=== PATIENT | male | born 1955 | race African-American/Black ===

== ENCOUNTER 2018-02-18 04:05 | Emergency (ER) | payer MEDICAID ==
[~2018-02-18] VITALS: Ht 180.3 cm; Wt 88.0 kg
[~2018-02-18 04:05] MED LIST: AMLO5TAB4 PO; ENAL20TA PO; MOTRIN PO; PROT20 PO
[2018-02-18 10:05] LABS: CHLORIDE 108 mEq/L (98-107)
[2018-02-18] MEDS ORDERED: KETOROLAC 60MG/2ML VIAL IM ONE (11:00)
[2018-02-18 11:44] VITALS: BP 105/58
== END 2018-02-18 12:02 | disposition home or self-care (01) ==
LOC: ER 08:43
DX: R60.0 Localized edema (principal); R53.1 Weakness; I10 Essential (primary) hypertension; F10.20 Alcohol dependence, uncomplicated; F12.10 Cannabis abuse, uncomplicated; Z88.8 Allergy status to other drugs, medicaments and biological substances; Z88.6 Allergy status to analgesic agent
CPT/HCPCS: 36415; 71045; 80053; 83735; 84100; 96372; 99285; J1885; Z7610

== ENCOUNTER 2019-08-17 22:42 | Emergency (ER) | payer OTHER, MEDICAID ==
[~2019-08-17] VITALS: Ht 175.3 cm; Wt 91.0 kg
[2019-08-18 02:43] LABS: CLARITY URINE CLEAR (CLEAR); COLOR URINE YELLOW (YELLOW); KETONES URINE NEGATIVE (NEGATIVE); LEUKOCYTE ESTERASE URINE NEGATIVE (NEGATIVE); NITRITE URINE NEGATIVE (NEGATIVE); OCCULT BLOOD URINE NEGATIVE (NEGATIVE); PROTEIN URINE TRACE (NEGATIVE); SPECIFIC GRAVITY URINE 1.012 (1.005-1.030)
[2019-08-18 02:59] LABS: HEMATOCRIT. 44.5 % (42.0-52.0); HEMOGLOBIN. 14.8 g/dL (14.0-18.0); MEAN CORPUSCULAR HEMOGLOBIN 30.1 pg (28.0-32.0); MEAN CORPUSCULAR VOLUME 90.3 fL (80.0-94.0); MEAN PLATELET VOLUME 7.8 fl (7.4-10.4); PLATELET 176 x1000/uL (130-400); RED BLOOD CELL COUNT 4.93 mill/uL (4.7-6.1); RED CELL DISTRIBUTION WIDTH 14.7 % (11.6-14.6)
[2019-08-18 03:06] LABS: CHLORIDE 102 mEq/L (98-107)
[2019-08-18] MEDS ORDERED: KETOROLAC 30MG/ML VIAL IV NR (04:00)
[2019-08-18] MEDS ORDERED: TRAMADOL 50MG TABLET PO NR (04:00)
[2019-08-18 04:19] LABS: PLATELET ESTIMATE NORMAL
[2019-08-18] MEDS ORDERED: ONDANSETRON 4MG ODT PO ONE (08:00)
[2019-08-18] MEDS ORDERED: AMLODIPINE 5MG TABLET PO ONE (09:15)
[2019-08-18] MEDS ORDERED: ENALAPRIL 5MG TABLET PO SCH (09:15)
[2019-08-18 09:46] VITALS: BP 183/121
== END 2019-08-18 10:00 | disposition short-term general hospital (02) ==
LOC: ER 22:42 → CANBEDREQ 08-18 07:21 → ER 08-18 10:00
DX: M19.90 Unspecified osteoarthritis, unspecified site (principal); R26.2 Difficulty in walking, not elsewhere classified; I10 Essential (primary) hypertension; Z86.19 Personal history of other infectious and parasitic diseases; F12.10 Cannabis abuse, uncomplicated; F17.210 Nicotine dependence, cigarettes, uncomplicated; Z88.5 Allergy status to narcotic agent; Z88.6 Allergy status to analgesic agent
CPT/HCPCS: 36415; 73560; 80053; 81003; 85025; 96374; 99285; J1885; Q0162

== ENCOUNTER 2019-12-08 07:20 | Emergency (ER) | payer OTHER, MEDICAID ==
[~2019-12-08] VITALS: Ht 172.7 cm; Wt 94.0 kg
[2019-12-08] MEDS ORDERED: IBUPROFEN 600MG TABLET PO ONE (09:15)
[2019-12-08 12:56] VITALS: BP 136/92
== END 2019-12-08 13:00 | disposition home or self-care (01) ==
LOC: ER 07:41
DX: S90.01XA Contusion of right ankle, initial encounter (principal); S90.31XA Contusion of right foot, initial encounter; I10 Essential (primary) hypertension; M19.90 Unspecified osteoarthritis, unspecified site; F12.10 Cannabis abuse, uncomplicated; Z88.6 Allergy status to analgesic agent; Z88.5 Allergy status to narcotic agent; Z86.19 Personal history of other infectious and parasitic diseases; W01.0XXA Fall on same level from slipping, tripping and stumbling without subsequent striking against object, initial encounter; Y93.89 Activity, other specified; Y92.488 Other paved roadways as the place of occurrence of the external cause
CPT/HCPCS: 73610; 73630; 99283

== ENCOUNTER 2021-05-06 19:52 | Inpatient (IN) | payer MEDICARE, MEDICAID ==
[~2021-05-06] VITALS: Ht 180.3 cm; Wt 108.9 kg
[2021-05-06] MEDS: SODIUM CHLORIDE 0.9% 1,000 ML IV SCH (08:00)
[~2021-05-06 19:52] MED LIST changes: +AMLO10TA4 MT; +AMLO10TA80 MT; +ASCO-339 PO; +CHOL200077 MT; -ENAL20TA PO; +ENAL20TA18 PO; +FOLI-43 PO; +HYDR-4346 MT; +IBUP-2029 MT; +LACT10SO7 MT; +LISI20TA31 MT; +OMEP20CA14 PO; +SENN-139 PO; +THIA50TA12 PO; +TOPUD MT; +TRAZ-251 MT
[2021-05-06 20:25] VITALS: BP 143/86
[2021-05-06 21:00] VITALS: BP 143/86
[2021-05-06] MEDS ORDERED: DIPHENHYDRAMINE 50MG/ML VIAL IV PRN (23:30)
[2021-05-06] MEDS ORDERED: CLONIDINE 0.1MG TABLET PO PRN (23:30)
[2021-05-06] MEDS ORDERED: LORAZEPAM 2MG/ML CPJ IV PRN (23:30)
[2021-05-06] MEDS ORDERED: ACETAMINOPHEN 650MG/20.3ML UDC GT PRN (23:30)
[2021-05-06] MEDS ORDERED: ENOXAPARIN 40MG/0.4ML SYR SUBCUT SCH (23:30)
[2021-05-06] MEDS: HYDROCODONE/ACETAMINOPHEN 5/325MG TABLET PO PRN (23:44)
[2021-05-07] VITALS: BP 107/74
[2021-05-07] MEDS: HYDROCODONE/ACETAMINOPHEN 5/325MG TABLET PO PRN (05:44)
[2021-05-07] MEDS ORDERED: ACETAMINOPHEN 325MG TABLET PO PRN (06:45)
[2021-05-07 07:02] LABS: HEMOGLOBIN. 13.3 g/dL (14.0-18.0); MEAN CORPUSCULAR HEMOGLOBIN 28.8 pg (28.0-32.0); MEAN CORPUSCULAR VOLUME 86.9 fL (80.0-94.0); MEAN PLATELET VOLUME 8.2 fl (7.4-10.4); PLATELET 210 x1000/uL (130-400); RED BLOOD CELL COUNT 4.61 mill/uL (4.7-6.1); RED CELL DISTRIBUTION WIDTH 14.2 % (11.6-14.6)
[2021-05-07 07:26] LABS: CLARITY URINE CLEAR (CLEAR); COLOR URINE YELLOW (YELLOW); KETONES URINE NEGATIVE (NEGATIVE); LEUKOCYTE ESTERASE URINE NEGATIVE (NEGATIVE); NITRITE URINE NEGATIVE (NEGATIVE); OCCULT BLOOD URINE NEGATIVE (NEGATIVE); PROTEIN URINE NEGATIVE (NEGATIVE)
[2021-05-07 07:54] LABS: CHLORIDE 110 mEq/L (98-107)
[2021-05-07 08:00] VITALS: BP 134/90
[2021-05-07 08:21] LABS: PHOSPHORUS 3.5 mg/dL (2.5-4.9)
[2021-05-07] MEDS: ENOXAPARIN 30MG/0.3ML SYR SUBCUT SCH ×2 (09:15→21:00)
[2021-05-07] MEDS: THIAMINE HCL 100MG TABLET PO SCH (10:44)
[2021-05-07 12:00] VITALS: BP 134/90
[2021-05-07 12:42] LABS: PLATELET ESTIMATE NORMAL
[2021-05-07 16:00] VITALS: BP 155/99
[2021-05-07] MEDS: HYDROCODONE/ACETAMINOPHEN 10/325MG TABLET PO PRN ×2 (16:13→21:01)
[2021-05-07] MEDS ORDERED: METH-375 MT (18:48)
[2021-05-07] MEDS ORDERED: DULO30CA2 MT (18:48)
[2021-05-07] MEDS ORDERED: APIX5TAB MT (18:49)
[2021-05-07] MEDS: SODIUM CHLORIDE 0.9% 1,000 ML IV SCH (19:30)
[2021-05-07 20:00] VITALS: BP 144/87
[2021-05-07] MEDS: TRAZODONE HCL 50MG TABLET PO SCH (21:02)
[2021-05-07] MEDS: LIDOCAINE 5% PATCH TOP SCH (21:03)
[2021-05-07] MEDS: MORPHINE SULFATE 2 MG/ML CPJ (NOT FOR IM USE) IV PRN (23:45)
[2021-05-08] VITALS: BP 148/96
[2021-05-08 04:00] VITALS: BP 118/71
[2021-05-08] MEDS: OMEPRAZOLE 20MG CAPSULE EXTENDED RELEASE PO SCH (06:49)
[2021-05-08] MEDS: MORPHINE SULFATE 2 MG/ML CPJ (NOT FOR IM USE) IV PRN (06:51)
[2021-05-08] MEDS: THIAMINE HCL 100MG TABLET PO SCH (09:01)
[2021-05-08] MEDS: AMLODIPINE 5MG TABLET PO SCH (09:02)
[2021-05-08] MEDS: LISINOPRIL 20MG TABLET PO SCH (09:03)
[2021-05-08] MEDS: ENOXAPARIN 30MG/0.3ML SYR SUBCUT SCH ×2 (09:05→22:44)
[2021-05-08] MEDS: HYDROCODONE/ACETAMINOPHEN 10/325MG TABLET PO PRN ×3 (10:07→20:11)
[2021-05-08 12:03] LABS: *AMPHETAMINES SCREEN URINE NEGATIVE (NEGATIVE); *BARBITURATES SCREEN URINE NEGATIVE (NEGATIVE); *BENZODIAZEPINES SCREEN URINE NEGATIVE (NEGATIVE); *COCAINE SCREEN URINE NEGATIVE (NEGATIVE); CANNABINOID URINE SCREEN NEGATIVE (NEGATIVE); METHADONE URINE SCREEN NEGATIVE (NEGATIVE); OPIATES URINE SCREEN PRESUMTIVE POSITIVE (NEGATIVE); PHENCYCLIDINE URINE SCREEN NEGATIVE (NEGATIVE)
[2021-05-08] MEDS: ONDANSETRON HCL 4MG/2ML INJ IV PRN (15:35)
[2021-05-08] MEDS ORDERED: CYCLOBENZAPRINE 10MG TABLET PO PRN (17:45)
[2021-05-08 20:00] VITALS: BP 128/71
[2021-05-08] MEDS: TRAZODONE HCL 50MG TABLET PO SCH (22:45)
[2021-05-09] VITALS: BP 147/74
[2021-05-09 04:00] VITALS: BP 127/97
[2021-05-09] MEDS: OMEPRAZOLE 20MG CAPSULE EXTENDED RELEASE PO SCH (07:00)
[2021-05-09] MEDS: HYDROCODONE/ACETAMINOPHEN 10/325MG TABLET PO PRN ×2 (07:52→13:25)
[2021-05-09] MEDS: ONDANSETRON HCL 4MG/2ML INJ IV PRN (07:58)
[2021-05-09 08:00] VITALS: BP 141/98
[2021-05-09] MEDS: THIAMINE HCL 100MG TABLET PO SCH (08:58)
[2021-05-09] MEDS: AMLODIPINE 5MG TABLET PO SCH (08:59)
[2021-05-09] MEDS: LISINOPRIL 20MG TABLET PO SCH (08:59)
[2021-05-09] MEDS: ENOXAPARIN 30MG/0.3ML SYR SUBCUT SCH (09:02)
[2021-05-09 10:26] LABS: BASOPHILS % 0.6 % (0.0-2.0); EOSINOPHILS % 1.7 % (0.0-5.0); HEMATOCRIT. 39.7 % (42.0-52.0); HEMOGLOBIN. 13.3 g/dL (14.0-18.0); LYMPHOCYTES % 19.2 % (20.0-50.0); MEAN CORPUSCULAR HEMOGLOBIN 28.6 pg (28.0-32.0); MEAN CORPUSCULAR VOLUME 85.6 fL (80.0-94.0); MEAN PLATELET VOLUME 7.8 fl (7.4-10.4); MONOCYTES % 11.8 % (2.0-8.0); NEUTROPHILS % 66.7 % (40.0-76.0); PLATELET 211 x1000/uL (130-400); RED BLOOD CELL COUNT 4.64 mill/uL (4.7-6.1); RED CELL DISTRIBUTION WIDTH 14.3 % (11.6-14.6)
[2021-05-09 10:33] LABS: CHLORIDE 107 mEq/L (98-107)
[2021-05-09 12:00] VITALS: BP 121/53
[2021-05-09] MEDS ORDERED: ONDANSETRON HCL 4MG TABLET PO PRN (13:15)
[2021-05-09] MEDS: LIDOCAINE 5% PATCH TOP SCH ×2 (13:30→13:31)
[2021-05-09 13:58] VITALS: BP 121/53
== END 2021-05-09 16:33 | DRG 554 ==
LOC: 6EST 19:52
PROVIDERS: ADMIT Internal Medicine Nephrology; ATTEND Internal Medicine Nephrology
DX: M17.0 Bilateral primary osteoarthritis of knee (principal); G82.20 Paraplegia, unspecified; M71.22 Synovial cyst of popliteal space [Baker], left knee; I10 Essential (primary) hypertension; J44.9 Chronic obstructive pulmonary disease, unspecified; K21.9 Gastro-esophageal reflux disease without esophagitis; K74.60 Unspecified cirrhosis of liver; R53.81 Other malaise; F10.10 Alcohol abuse, uncomplicated; G89.29 Other chronic pain; Y90.9 Presence of alcohol in blood, level not specified; M54.5 Low back pain; Z86.711 Personal history of pulmonary embolism; Z99.3 Dependence on wheelchair; Z79.899 Other long term (current) drug therapy; Z88.6 Allergy status to analgesic agent; Z88.8 Allergy status to other drugs, medicaments and biological substances; Z86.16 Personal history of COVID-19; Z79.01 Long term (current) use of anticoagulants; Z86.19 Personal history of other infectious and parasitic diseases; Z72.0 Tobacco use
CPT/HCPCS: 36415; 73560; 80048; 80305; 81003; 83735; 84100; 85025; 93970; 97162; J1650; J2270; J2405; J7030; Q0162

== ENCOUNTER 2021-09-03 18:44 | Emergency (ER) | payer MEDICARE, MEDICAID ==
[~2021-09-03] VITALS: Ht 180.3 cm; Wt 95.0 kg
[~2021-09-03 18:44] MED LIST changes: +APIX5TAB MT; +DULO30CA2 MT; +METH-375 MT
[2021-09-03] MEDS ORDERED: SODIUM CHLORIDE 0.9% 1,000 ML IV ONE (21:00)
[2021-09-03] MEDS ORDERED: HYDROCODONE/ACETAMINOPHEN 5/325MG TABLET PO ONE (21:00)
[2021-09-03] MEDS ORDERED: MORPHINE SULFATE 4 MG/ML CPJ (NOT FOR IM USE) IV ONE (22:45)
[2021-09-03] MEDS ORDERED: MORPHINE SULFATE 2 MG/ML CPJ (NOT FOR IM USE) IV SCH (23:00)
[2021-09-04 01:12] LABS: BASOPHILS % 0.7 % (0.0-2.0); EOSINOPHILS % 1.6 % (0.0-5.0); HEMOGLOBIN. 13.2 g/dL (14.0-18.0); LYMPHOCYTES % 21.6 % (20.0-50.0); MEAN CORPUSCULAR HEMOGLOBIN 27.8 pg (28.0-32.0); MEAN CORPUSCULAR VOLUME 83.9 fL (80.0-94.0); MONOCYTES % 12.7 % (2.0-8.0); NEUTROPHILS % 63.4 % (40.0-76.0); PLATELET 225 x1000/uL (130-400); RED BLOOD CELL COUNT 4.77 mill/uL (4.7-6.1); RED CELL DISTRIBUTION WIDTH 15.3 % (11.6-14.6)
[2021-09-04] MEDS ORDERED: ACETAMINOPHEN 325MG TABLET PO ONE (01:15)
[2021-09-04 01:19] LABS: CHLORIDE 108 mEq/L (98-107)
[2021-09-04] MEDS ORDERED: KETOROLAC 15MG/ML VIAL IV SCH (01:30)
[2021-09-04 12:30] VITALS: BP 148/87
[2021-09-04] MEDS ORDERED: IOHEXOL-350 100 ML BOTTLE ONE (13:40)
== END 2021-09-04 16:24 | disposition home or self-care (01) ==
LOC: ER 18:44
DX: M25.562 Pain in left knee (principal); M25.561 Pain in right knee; L89.301 Pressure ulcer of unspecified buttock, stage 1; I10 Essential (primary) hypertension; R00.0 Tachycardia, unspecified; F12.10 Cannabis abuse, uncomplicated; F10.21 Alcohol dependence, in remission; Z98.890 Other specified postprocedural states; Z88.6 Allergy status to analgesic agent; Z88.5 Allergy status to narcotic agent; Z79.899 Other long term (current) drug therapy; Z99.3 Dependence on wheelchair; Z86.19 Personal history of other infectious and parasitic diseases; Z86.711 Personal history of pulmonary embolism; Z79.01 Long term (current) use of anticoagulants
CPT/HCPCS: 36415; 71045; 71275; 80053; 83880; 84484; 85025; 93005; 93970; 96374; 96375; 99285; J1885; J2270; J7030; Q9967